=== PATIENT | female | born 1960 | race Two or more races ===

== ENCOUNTER 2020-07-11 00:11 | Emergency (ER) | payer OTHER ==
[2020-07-11 00:27] VITALS: BP 120/90; PULSE 58; TEMP 98.3; BMI 29.1
--- NOTE | 2020-07-11 02:20 | PDOC ---
History of Present Illness - General Chief Complaint: Chest Pain Stated Complaint: CHEST PAIHN Time Seen by Provider: 07/11/20 02:01 History Source: Patient Exam Limitations: No Limitations - History of Present Illness Initial Comments: 07/11/20 02:20 60F w/o significant PMH c/o on/off squeezing left sided chest pain located at the left pec lasting for 3 minutes and radiating to the shoulder blade since 3pm. No sob, substernal cp, f/c, n/v, diaphoresis. No headaches, changes in vision, hearing. NKDA. 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 Past History - Medical History Allergies/Adverse Reactions: Allergies Allergy/AdvReac Type Severity Reaction Status Date / Time No Known Allergies Allergy Verified 07/11/20 00:27 COPD: No Thyroid Disease: No - Psycho-Social/Smoking History Smoking History: Never smoked - Substance Abuse Hx (Audit-C & DAST Scrn) How often the patient has a drink containing alcohol: Never Score: In Men: 4 or > Positive; In Women: 3 or > Positive: 0 Screen Result (Pos requires Nsg. Audit-10AR): Negative In the last yr the pt used illegal drug/Rx for NonMed reason: No Score: Yes response is considered Positive: 0 Screen Result (Positive result requires Nsg. DAST-10): Negative Review of Systems - Review of Systems Comments:: 07/11/20 16:49 CONSTITUTIONAL: Denies F / C HEENT: Denies headache, lightheadedness, dizziness, changes in vision / hearing, diplopia, blurry vision, sore throat, rhinorrhea RESP: Denies SOB, cough CARD: + left pectoralis chest pain GI: Denies N / V / D, abdominal pain, bloody stool, inability to tolerate PO : Denies dysuria, hematuria NEURO: Denies numbness, tingling, weakness MSK: Denies back pain SKIN: Denies rashes *Physical Exam - Vital Signs Last Vital Signs Temp Pulse Resp BP Pulse Ox 98.3 F 58 L 18 120/90 98 07/11/20 00:23 07/11/20 00:23 07/11/20 00:23 07/11/20 00:23 07/11/20 00:23 - Physical Exam 07/11/20 16:49 GEN: Well appearing, NAD, comfortable. AAOx3. HEENT: NC/AT, EOMI, PERRL. No facial asymmetry. Moist mucous membranes. Normal voice. Supple neck w/ FROM. CV: nontender. S1/S2, RRR, no m/r/g LUNG: CTAB, no wheezes, crackles, rales, rhonchi. GI: Soft, ndnt, +BS, no guarding, no rebound. MSK: No obvious deformities of all extremities. SKIN: Warm, dry, no rashes appreciated. PSYCH: Normal mood and affect. NEURO: Moving all extremities well. normal gait. Heart Score/ECG Review - History History: Slightly suspicious - Electrocardiogram EKG: Normal (see MDM, early repol.) - Age Age: 45-65 - Risk Factors Based on the list above the patient has:: No risk factors known - Troponin Troponin: </= normal limit - Score Heart Score - Total: 1 ED Treatment Course - LABORATORY CBC & Chemistry Diagram: 07/11/20 04:00 07/11/20 04:00 Medical Decision Making - Medical Decision Making 07/11/20 16:49 60F low risk chest pain since 3pm cardiac w/u EKG 00:37 HR 56 intervals and axis wnl, early repol, no TWI low risk cp HEART 0-1 labs reviewed dc home w/ pcp f/u Discharge - Discharge Information Problems reviewed: Yes Clinical Impression/Diagnosis: Chest pain Qualifiers: Chest pain type: unspecified Qualified Code(s): R07.9 - Chest pain, unspecified Condition: Stable Disposition: HOME - Admission No - Follow up/Referral - Patient Discharge Instructions Patient Printed Discharge Instructions: DI for Chest Pain Additional Instructions: Follow up with your Primary Care Doctor regarding this ED visit in the next 3-5 days. Return to the nearest Emergency Department if you experience new or worsening symptoms, including but not limited to: - chest pain - shortness of breath - intractable vomiting - anything that concerns you Bertha un seguimiento con casanova mdico de atencin primaria con respecto a esta visita al servicio de urgencias en los prximos 3-5 lewis.Regrese al Departamento de Emergencias ms cercano si experimenta sntomas nuevos o que empeoran, que incluyen, entre otros:- dolor en el pecho- dificultad para respirar- vmitos intratables- cualquier cosa que te preocupe Print Language: FAROESE - Post Discharge Activity
--- NOTE | 2020-07-11 02:33 | PDOC ---
Attending Attestation - Resident Resident Name: StanAlexey - ED Attending Attestation I have performed the following: I have examined & evaluated the patient, The case was reviewed & discussed with the resident, I agree w/resident's findings & plan, Exceptions are as noted - HPI HPI: 60 yo F no significant PMH presents with episodic chest pain since 3pm yesterday. Localizes to the L upper chest, radiates to L shoulder. Denies SOB, fever, cough. No known sick contacts. No prior similar symptoms. - Physicial Exam PE: GENERAL: Awake, alert, and fully oriented, in no acute distress HEAD: No signs of trauma EYES: PERRLA, EOMI, sclera anicteric, conjunctiva clear ENT: Auricles normal inspection, hearing grossly normal, nares patent, oropharynx clear without exudates. Moist mucosa NECK: Normal ROM, supple, no lymphadenopathy, JVD, or masses LUNGS: Breath sounds equal, clear to auscultation bilaterally. No wheezes, and no crackles HEART: Regular rate and rhythm, normal S1 and S2, no murmurs, rubs or gallops ABDOMEN: Soft, nontender, normoactive bowel sounds. No guarding, no rebound. No masses EXTREMITIES: Normal range of motion, no edema. No clubbing or cyanosis. No cords, erythema, or tenderness NEUROLOGICAL: Cranial nerves II through XII grossly intact. Normal speech, normal gait. Motor and sensation intact SKIN: Warm, dry, normal turgor, no rashes or lesions noted. - Medical Decision Making 07/11/20 02:53 Pt with low risk chest pain, currently asymptomatic. Episodes started 12 hours ago. Will check labs, EKG. Likely DC home. Heart Score/ECG Review - History History: Slightly suspicious - Electrocardiogram EKG: Non specific repolarization disturbance - Age Age: 45-65 - Risk Factors Risk Factors Heart Score: Yes Hx Obesity Based on the list above the patient has:: 1-2 risk factors - Troponin Troponin: </= normal limit - Score Heart Score - Total: 3 Discharge - Discharge Information Problems reviewed: Yes Clinical Impression/Diagnosis: Chest pain Qualifiers: Chest pain type: unspecified Qualified Code(s): R07.9 - Chest pain, unspecified - Follow up/Referral - Patient Discharge Instructions - Post Discharge Activity
[2020-07-11 04:13] LABS: BASO % 1.3 % (0-2.0); EOS % 5.1 % (0-4.5); HEMATOCRIT 40.3 % (32.4-45.2); HEMOGLOBIN 13.5 GM/dL (10.7-15.3); LYMPH % 33.3 % (8-40); MCH 30.3 pg (25.7-33.7); MCHC 33.5 g/dl (32.0-36.0); MEAN CELL VOLUME 90.5 fl (80-96); MEAN PLT VOLUME 12.4 fl (7.5-11.1); MONO % 7.2 % (3.8-10.2); NEUT % 53.1 % (42.8-82.8); PLATELET COUNT 171 K/MM3 (134-434); RBC 4.45 M/mm3 (3.60-5.2); WHITE BLOOD COUNT 6.6 K/mm3 (4.0-10.0)
[2020-07-11 04:48] LABS: ALBUMIN 3.7 g/dl (3.4-5.0); ALK PHOS 110 U/L (45-117); ANION GAP 6 MMOL/L (8-16); BILIRUBIN,TOTAL 0.4 mg/dL (0.2-1); BLOOD UREA NITROGEN 17.8 mg/dL (7-18); CALCIUM 9.3 mg/dL (8.5-10.1); CHLORIDE 106 mmol/L (98-107); CO2 28 mmol/L (21-32); CREATININE 0.9 mg/dL (0.55-1.3); GLUCOSE,RANDOM 88 mg/dL (74-106); SGOT/AST 29 U/L (15-37); SGPT/ALT 30 U/L (13-61); SODIUM 141 mmol/L (136-145)
--- NOTE | 2020-07-11 09:15 | EKG ---
Test Reason : Blood Pressure : / mmHG Vent. Rate : 056 BPM Atrial Rate : 056 BPM P-R Int : 134 ms QRS Dur : 090 ms QT Int : 418 ms P-R-T Axes : 052 055 051 degrees QTc Int : 403 ms SINUS BRADYCARDIA WITH MARKED SINUS ARRHYTHMIA EARLY REPOLARIZATION OTHERWISE NORMAL ECG NO PREVIOUS ECGS AVAILABLE Confirmed by SHALA SURESH, MARISELA ([id number]) on 07/11/2020 9:15:09 AM Referred By: Confirmed By:MARISELA LAST MD
== END 2020-07-11 05:30 | disposition home or self-care (01) ==
LOC: JER 00:11
DX: R07.9 Chest pain, unspecified (principal)
CPT/HCPCS: 36415; 71046-TC-FY; 80053; 82550; 84484; 85025; 93005; 93010; 99285-25

== ENCOUNTER 2022-05-14 10:15 | Emergency (ER) | payer OTHER ==
[2022-05-14 10:21] VITALS: BP 137/86; PULSE 56; TEMP 97.8; BMI 33.3
[2022-05-14] MEDS ORDERED: KETOROLAC TROMETHAMINE 30 MG/1 ML VIAL IM ONE (10:49)
[2022-05-14] MEDS ORDERED: KETOROLAC TROMETHAMINE 30 MG/1 ML VIAL ONE (11:00)
== END 2022-05-14 12:02 | disposition home or self-care (01) ==
LOC: JERFT 10:15 → JER 10:15 → JERFT 12:02
PROC: 3E0233Z Introduction of Anti-inflammatory into Muscle, Percutaneous Approach (ICD-10-PCS; principal; 2022-05-14)
DX: M25.561 Pain in right knee (principal); W01.0XXA Fall on same level from slipping, tripping and stumbling without subsequent striking against object, initial encounter
CPT/HCPCS: 73562-TC-RT-FY; 96372; 99284-25

== ENCOUNTER 2022-05-23 15:04 | Emergency (ER) | payer OTHER ==
[2022-05-23 15:26] VITALS: BP 125/78; PULSE 57; TEMP 96; BMI 31.6
== END 2022-05-23 18:34 | disposition left against medical advice (07) ==
LOC: JER 15:04 → JERFT 15:04
DX: M25.561 Pain in right knee (principal); W01.0XXA Fall on same level from slipping, tripping and stumbling without subsequent striking against object, initial encounter
CPT/HCPCS: 99283-25; 99284-25